=== PATIENT | female | born 1975 | race African-American/Black ===

== ENCOUNTER 2016-12-06 19:04 | Emergency (ER) | payer OTHER ==
[~2016-12-06] VITALS: Ht 165.1 cm; Wt 81.6 kg
[2016-12-06 19:22] VITALS: BP 142/87
--- NOTE | 2016-12-06 20:09 | PHYS DOC ---
Past Medical History Past Medical History: No Pertinent History Past Surgical History: No Surgical History Alcohol Use: Occasionally Drug Use: Marijuana Adult General Chief Complaint Chief Complaint: BREAST PAIN/INJURY HPI HPI Patient is a 41 year old female who presents with bilateral breast pain for 4 days. The pain is primarily around the outer edge of the areola. She denies any injury to the chest wall. She has not had any discharge from the nipples or felt any lumps in the breasts. She has not noticed any skin changes. She performs monthly self-breast exams. She last had a mammogram 2 years ago. She has a family history of breast cancer in her mother. She states that she has started to have some symptoms of menopause, with hot flashes and irregular menses. She admits to drinking a lot of caffeine on a daily basis. She has a PCP , but is unable to remember her name. Review of Systems Review of Systems Constitutional: Denies fever or chills. [] Respiratory: Denies cough or shortness of breath. [] Cardiovascular: Denies chest pain, palpitations or edema. [] Musculoskeletal: Denies back pain or joint pain. Reports bilateral breast pain. Integument: Denies rash or skin lesions. [] Neurologic: Denies headache, focal weakness or sensory changes. [] Endocrine: Denies polyuria or polydipsia. [] Psych: Denies anxiety or depression. [] All systems reviewed and negative unless otherwise stated in the HPI. Allergies Allergies Allergies Coded Allergies Type Severity Reaction Last Updated Verified No Known Drug Allergies 12/06/16 No Physical Exam Physical Exam Constitutional: Well developed, well nourished, no acute distress, non-toxic appearance. [] HENT: Normocephalic, atraumatic, bilateral external ears normal, oropharynx moist, no oral exudates, nose normal. [] Eyes: PERRLA, EOMI, conjunctiva normal, no discharge. [] Neck: Normal range of motion, no tenderness, supple, no stridor. [] Cardiovascular: Heart rate regular rhythm, no murmur [] Lungs & Thorax: Bilateral breath sounds clear to auscultation without wheezes, rales, or rhonchi. Breasts: Bilateral breasts are equal. There are no palpable lumps or masses in the breasts. There is no palpable lymphadenopathy in the axillae. There are no skin changes. There is no peau d'orange. There is no discharge from the nipples. There is tenderness around the outer edge of the areolas. Skin: Warm, dry, no erythema, no rash. [] Neurologic: Alert and oriented X 3, normal motor function, normal sensory function, no focal deficits noted. [] Psychologic: Affect normal, judgement normal, mood normal. [] Current Patient Data Vital Signs Vital Signs Date Time Temp Pulse Resp B/P Pulse Ox O2 Delivery O2 Flow Rate FiO2 12/06/16 19:22 97.9 79 18 142/87 100 Room Air 97.9 Lab Values Laboratory Tests Test 12/06/16 18:48 POC Urine HCG, Qualitative Hcg negative (Negative) EKG EKG [] Radiology/Procedures Radiology/Procedures [] Course & Med Decision Making Course & Med Decision Making Pertinent Labs and Imaging studies reviewed. (See chart for details) The patient presents with bilateral breast pain for 4 days. On exam, there are no lumps, lymphadenopathy, or skin changes. The patient is instructed to follow- up with her PCP for routine mammography. She is advised to decrease her caffeine intake. She may take ibuprofen to help with her pain. She is instructed to continue her self breast exams monthly. Return precautions were discussed. She verbalizes understanding and agrees with plan. Dragon Disclaimer Dragon Disclaimer This electronic medical record was generated, in whole or in part, using a voice recognition dictation system. Departure Departure Impression: Primary Impression: Breast pain Disposition: HOME, SELF-CARE Condition: STABLE Referrals: UNKNOWN PCP NAME (PCP) Patient Instructions: Breast Tenderness Additional Instructions: It is unclear what exactly is causing your breast pain today. There were no lumps felt on your exam or concerning skin changes. Please decrease the amount of caffeine that you are drinking daily. This can affect your breasts. Please take ibuprofen for your pain. You may take up to 600mg every 8 hours. Please continue your monthly breast self-exams. Please follow up with your doctor to have your annual mammograms. This is very important, especially with a family history of breast cancer! Return to the emergency department if you have any new or concerning symptoms. EZEQUIEL SAM Dec 06, 2016 20:09
== END 2016-12-06 20:17 | disposition home or self-care (01) ==
LOC: ER 19:04
DX: N64.4 Mastodynia (principal); F12.10 Cannabis abuse, uncomplicated
CPT/HCPCS: 81025; 99281